=== PATIENT | male | born 1975 ===

== ENCOUNTER 2021-12-05 06:00 | Day surgery (SDC) | payer OTHER ==
[2021-12-05] MEDS ORDERED: PERCOCET 5-3251 EACH PO (10:27)
[2021-12-05] MEDS ORDERED: NEURONTIN600 M1 PO (10:28)
[2021-12-05] MEDS ORDERED: POLY119PG PO (10:28)
== END 2021-12-05 12:00 | disposition home or self-care (01) ==
LOC: CIR.AMB 06:00
PROVIDERS: ATTEND Surgery
DX: K43.2 Incisional hernia without obstruction or gangrene (principal)